=== PATIENT | male | born 1980 | race Caucasian/White ===

== ENCOUNTER 2020-03-03 20:46 | Emergency (ER) | payer OTHER ==
[~2020-03-03] VITALS: Ht 180.3 cm; Wt 68.0 kg
[2020-03-03] MEDS ORDERED: PREDNISONE 10 M10 MG PO (20:57)
[2020-03-04] MEDS ORDERED: BACTRIM DS TAB1 EACH PO (01:01)
[2020-03-04] MEDS ORDERED: PERCOCET 5-3251 EACH PO (01:25)
[2020-03-04 01:34] VITALS: BP 121/69
== END 2020-03-04 01:35 | disposition home or self-care (01) ==
LOC: ER 20:46
DX: S81.012A Laceration without foreign body, left knee, initial encounter (principal); S40.211A Abrasion of right shoulder, initial encounter; M25.521 Pain in right elbow; M25.522 Pain in left elbow; M06.9 Rheumatoid arthritis, unspecified; Z79.899 Other long term (current) drug therapy; Z88.0 Allergy status to penicillin; V28.4XXA Motorcycle driver injured in noncollision transport accident in traffic accident, initial encounter; Y93.55 Activity, bike riding; Y92.488 Other paved roadways as the place of occurrence of the external cause; Y99.8 Other external cause status